=== PATIENT | female | born 1995 | race African-American/Black ===

== ENCOUNTER 2017-07-11 21:23 | Emergency (ER) | payer BC, OTHER ==
[~2017-07-11] VITALS: Ht 162.6 cm; Wt 60.8 kg
[2017-07-11 21:25] VITALS: TEMP 36.9; Ht 162.6 cm; Wt 60.8 kg
[2017-07-11] MEDS ORDERED: AMOX875T PO (22:11)
[2017-07-11] MEDS ORDERED: NORCO 5/325MG HOME PACK PO ONE (22:15)
[2017-07-11] MEDS ORDERED: AMOXICIL/CLAVU 875MG HOME PACK PO ONE (22:15)
[2017-07-11 22:20] VITALS: BP 130/68; PULSE 73; O2SAT 98
[2017-07-11] MEDS ORDERED: BCPILLS PO (22:20)
--- NOTE | 2017-07-12 06:30 | EMERGENCY ROOM VISIT NOTE ---
History First contact with patient: 21:35 Chief Complaint: INFECTION Stated Complaint: LARGE LUMP MISKATEN FOR HEMMORHOID, PAINFUL TO WAL Nursing Triage Summary: Pt states, "I thought I had a hemorrhoid, but I don't think that's what it is. It's in my crack, but it's hanging out. I used preparation H, but it didn't help. It started out small, but it's been worse since Sat. I had the stomach bug so I don't know if that exacerbated it. It feels very solid." Denies drainage. History of Present Illness The patient is a 22 year old female who presents to the Emergency Room with complaints of pain in the perianal that is worsening over the past several days. The patient initially thought her symptoms were related to a hemorrhoid and has been using [id number] Preparation H. This evidently did not improve her symptoms, and she states is increasing in size. The patient does not report a history of inflammatory bowel disease. She does not have injury or trauma to the area. She is not diabetic. She rates her discomfort a 7/10 that worsens with palpation and sitting on the area. Review of Systems More than 10 systems were reviewed and otherwise negative with the exception of history of present illness. Past Medical/Surgical History No chronic medical disease Family History No pertinent family history Social History Smoking Status: Never Smoker Marital Status: single Current/Historical Medications Scheduled Amoxicillin & Pot Clavulanate (Augmentin 875-125 mg), 1 TAB PO BID Control Pills ( Control Pills), 1 TAB PO DAILY Physical Exam Vital Signs Date Time Temp Pulse Resp B/P (MAP) Pulse Ox O2 Delivery O2 Flow Rate FiO2 07/11/17 22:20 73 16 130/68 98 07/11/17 21:25 36.9 81 18 137/91 99 Room Air Physical Exam VITALS: Vitals are noted on the nurse's note and reviewed by myself. Vital signs stable. GENERAL: Well-developed, well-nourished, female, who is in no acute distress and resting comfortably. Patient is cooperative with the examination. HEART: Regular rate and rhythm without murmurs gallops or rubs. LUNGS: Clear to auscultation bilaterally without wheezes, rales or rhonchi. No retractions or accessory muscle use. ABDOMEN: Positive normal bowel sounds x 4. Soft, nontender, without masses or organomegaly. No guarding or rebound tenderness. 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 The left buttocks appears with a small area of cellulitis near the midline of the gluteal cleft. There is no distinct fluctuance or drainage. Medical Decision & Procedures Medications Administered Medications (Trade) Dose Ordered Sig/Nehal Route Start Time Stop Time Status Last Admin Dose Admin Amoxicillin/ Clavulanate Potassium (Augmentin 875MG Home Pack) 1 homepack UD ONCE PO 07/11/17 22:15 07/11/17 22:16 DC 07/11/17 22:20 1 HOMEPACK Acetaminophen/ Hydrocodone Bitart ([place] 5/325mg Home Pack) 1 homepack UD ONCE PO 07/11/17 22:15 07/11/17 22:16 DC 07/11/17 22:20 1 HOMEPACK ED Course Physical exam and history were performed. Nursing notes, EMR, and Medication List were personally reviewed. Patient appears to have a left side infection on her buttocks. This is roughly in the area where you would expect a pilonidal abscess, however there does not appear to be distinct fluctuance or drainage at this time. I do not feel comfortable attempting incision and drainage. The patient will be started on antibiotics and given instructions to follow with her primary care physician or back in the ER in 2-3 days. She is to return sooner symptoms worsen. I will give her a home pack of Vicodin. She was pleased with plan of care and rated her discomfort a 5/10 at the time of departure. The chart was completed utilizing [employer] Speech Voice Recognition Software. Grammatical errors, random word insertions, pronoun errors, and incomplete sentences are an occasional consequence of this system due to software limitations, ambient noise, and hardware issues. Any formal questions or concerns about the content, text, or information contained within the body of this dictation should be directly addressed to the provider for clarification. . Medical Decision Differential diagnosis: Etiologies such as cellulitis, abscess, MRSA infection, DVT, necrotizing fasciitis, dermatitis, drug eruption, as well as others were entertained.. Impression Primary Impression: Cellulitis of buttock, left Departure Information Dispostion Home / Self-Care Condition GOOD Prescriptions Amoxicillin & Pot Clavulanate (Augmentin 875-125 mg) 1 Tab Tab 1 TAB PO BID for 9 Days, #18 TAB Prov: Mychal Clemente PA-C 07/11/17 Forms HOME CARE DOCUMENTATION FORM, IMPORTANT VISIT INFORMATION Patient Instructions [facility] Additional Instructions You were seen and evaluated today on an emergency basis only. This is not a substitute for, or an effort to provide, complete comprehensive medical care. It is not possible to recognize and treat all injuries or illnesses in a single emergency department visit. For this reason it is recommended that you followup with your primary care physician or back in the emergency department in 48-72 hours for recheck. For baseline pain relief you may alternate ibuprofen and acetaminophen every 4 hours for pain control. Take 600 mg ibuprofen (Advil) and then 4 hours later take 1000 mg acetaminophen (Tylenol). Do not take more than 3000 mg acetaminophen in a single day. [place] (hydrocodone/acetaminophen) 5/325 mg every 6 hours as needed for worsening breakthrough pain. Do not drink or drive on [place]. This medication will likely make you tired. Do not take [place] and Tylenol at the same time as both contain acetaminophen. [place] may cause constipation. You may wish to take an [id number] stool softener like Colace if this occurs. Amoxicillin Clavulanate (Augmentin) 875mg: Take one pill twice daily for 10 total days for your infection. All antibiotics can cause diarrhea. If this occurs and you feel worse or it does not resolve in 1-2 days follow up with your doctor or return to the Emergency Department as this could be signs of serious underlying problems. Any medication can cause an allergic reaction, stop the pills immediately and return to the ER for rash, hives, breathing difficulties, or swelling. You are welcome to return to the emergency department anytime with new, worsening, or concerning symptoms.
--- NOTE | 2017-07-12 11:00 | Pharmacy Progress Note ---
ED Pharmacist Progress Note Date of Service: Jul 12, 2017. Patient called stating she had a written Rx for Augmentin however she would prefer that we call in the Rx to a pharmacy so she would not have to wait to pick it up. I explained that we typically do not give a second Rx for the same medication when a written unfilled copy already exists. She stated she does not drive and wanted her friend to pickup the Rx for her. I stated I would review the case with one of our ED physicians and call her back. I explained case to Dr Hicks as Anirudh Clemente (the prescriber) is not here at this time. Dr Hicks stated this is not our usual practice and that she should give her friend the written rx to be filled if she is unable to take the rx to the pharmacy for filling and pickup. I explained this to her in a f/u phone call.
--- NOTE | 2017-07-12 17:22 | Pharmacy Progress Note ---
ED Pharmacist Progress Note Date of Service: Jul 12, 2017. Patient called back again asking how she is supposed to take her Antibiotic, because if the medication is only taken once daily she will wait until tomorrow to get it filled. I explained that the medication should be taken twice daily and that it is important to not miss doses of an antibiotic. She stated she is very tired and did not want to leave her home to get the Rx filled but will go get the Rx if she needs to take a dose tonight. I advised the patient that if she is not feeling better after 48 hrs of abx therapy she should be reevaluated.
== END 2017-07-11 22:21 | disposition home or self-care (01) ==
LOC: C.EDB 21:24 → C.EDD 22:21
DX: L03.317 Cellulitis of buttock (principal)